=== PATIENT | male | born 1965 | race Two or more races ===

== ENCOUNTER 2016-12-12 15:06 | Emergency (ER) | payer MEDICAID ==
--- NOTE | 2016-12-12 16:53 | RAD ---
Exam: Three-view right knee COMPARISON: None INDICATION: Fall today, injuring right knee. Findings: AP, lateral and sunrise views of the right knee were obtained. Mild soft tissue swelling is seen anteriorly although there is no significant joint effusion. Alignment is normal. No fracture is identified. Joint spaces are maintained. IMPRESSION: No acute osseous abnormality in the right knee.
== END 2016-12-12 17:35 | disposition home or self-care (01) ==
LOC: ED 15:06
DX: M25.561 Pain in right knee (principal)